=== PATIENT | male | born 1965 | race Caucasian/White ===

== ENCOUNTER 2017-02-05 17:37 | Inpatient (IN) | payer OTHER ==
[2017-02-05] MEDS ORDERED: IOPAMIDOL 370 (76%) 100 ML VIAL IV ONE (17:38)
[2017-02-05 18:10] LABS: ABSOLUTE NEUTROPHIL COUNT 2.9 K/mm3 (1.8-7.7); BASO % 0.5 % (0.2-1.0); EOS % 0.2 % (0.9-2.9); HEMATOCRIT 53.8 % (32.0-52.0); HEMOGLOBIN 17.5 gm/l (14.0-18.0); IMM NEUT% 0.5 % (0-1); LYMPH # 0.7 (1.0-4.8); LYMPH % 16.6 % (15-45); MEAN CELL VOLUME 100.6 fl (80.0-94.0); MEAN CORPUSCULAR HEMOGLOBIN 32.7 pg (27.0-31.0); MEAN CORPUSCULAR HGB CONC 32.5 g/dl (33.0-37.0); MEAN PLATELET VOLUME 9.3 fl (7.4-10.4); MONO # 0.6 (0.0-0.8); MONO % 13.5 % (4-12); NEUT % 68.7 % (43-75); PLATELET COUNT 119 K/mm3 (130-400); RED CELL DISTRIBUTION WIDTH 13.7 % (11.5-14.5)
[2017-02-05 18:16] LABS: ALB/GLOB RATIO 1.1 (>1.0); CALCIUM 8.9 mg/dL (8.6-10.3)
[2017-02-05] MEDS ORDERED: ASPIRIN CHEWTAB 81 MG TABLET ONE (18:44)
--- NOTE | 2017-02-05 19:26 | RAD ---
Name: ROMERO BERMAN Exam: Two-view chest Comparison: 11/29/2009 Clinical history: Shortness breath with chest pain Findings: 2 views of the chest are submitted. Heart is nonenlarged. Mediastinum and hilar structures normal. There is very mild increased density left lung base. Some of this represents prominent bronchovascular markings. A very small amount of atelectasis or infiltrate not excluded. There is no pleural effusion or pneumothorax. Overt failure is not appreciated. Degenerative disease of the spine is noted. Impression: 1. Minimal left basilar increased density some of which is bronchovascular markings. A small amount of atelectasis or infiltrate is not excluded.
--- NOTE | 2017-02-05 20:48 | CT ---
Name: ROMERO BERMAN Exam: CT Angiogram of the chest with contrast Comparison: None Clinical History:Shortness of breath. Elevated d-dimer. Procedure: Helical CT using multidetector technique was applied to the chest during rapid intravenous administration of 80 cc of Isovue-370. Due to the poor opacification of the pulmonary vasculature, the above exam was repeated with intravenous administration of another 80 cc of Isovue-370. A total of 160 cc was intravenously administered for this exam. MIP reconstructions were obtained on the CT scanner. Automated dose reduction technique was used to minimize patient radiation dose. Findings: CT angiogram of the chest (contrast enhanced): This is a low volume exam contributing to prominence of heart. There is no pleural effusion. Aorta is normal caliber. There is a normal 3 great vessel arrangement. Injection is made via the right. There is no suspicious axillary, mediastinal or hilar adenopathy. Large airways are clear. There is no pulmonary embolus. There are couple granulomas. There is no failure, infiltrate, pleural effusion or pneumothorax. Multilevel degenerative seas of the spine is identified. Fatty infiltration liver is present. The spleen is only partially imaged but enlarged. A small amount of stranding is noted at the head of the pancreas. Acute pancreatitis is not excluded on this exam. Adrenal hypertrophy is noted. Impression: 1. No pulmonary embolus 2. Mild stranding of the head of the pancreas. Pancreatitis is not excluded on this exam 3. Splenomegaly. The spleen is partially imaged on this exam 4. Bilateral adrenal hypertrophy 5. Fatty infiltration of liver Note: Findings were transmitted to the emergency department from [employer] at 2014 hours
[2017-02-05] MEDS ORDERED: ALBUTEROL NEB 2.5 MG/3 ML VIAL.NEB NEB ONE (21:05)
[2017-02-05] MEDS ORDERED: CALCIUM CARBONATE 500 MG TAB.CHEW PO PRN (22:25)
[2017-02-05] MEDS ORDERED: BISACODYL 5 MG TABLET.EC PO PRN (22:25)
[2017-02-05] MEDS ORDERED: MAGNESIUM HYDROXIDE 30 ML UDCUP PO PRN (22:25)
[2017-02-05] MEDS ORDERED: BLISTEX LIPSTICK 1 EACH TP PRN (22:25)
[2017-02-05] MEDS ORDERED: BISACODYL 10 MG SUP PR PRN (22:25)
[2017-02-05] MEDS ORDERED: SODIUM CHLORIDE 0.9% 100 ML IV PRN (22:25)
[2017-02-05] MEDS ORDERED: MENTHOL/CETYLPYRD 1 EACH LOZENGE PO PRN (22:25)
[2017-02-05 22:33] VITALS: BMI 39.1
[2017-02-05] MEDS ORDERED: LORAZEPAM 2 MG/ML 1ML SDV IM PRN ×2 (22:41→23:11)
[2017-02-05] MEDS ORDERED: LORAZEPAM 2 MG/ML 1ML SDV IV ONE (22:42)
[2017-02-05] MEDS ORDERED: MULTIVITAMINS 10 ML, FOLIC ACID 2 MG, MAGNESIUM SULFATE 1 G/2 ML 2 G, THIAMINE HCL 100 ... IV ONE ×5 (22:45)
[2017-02-05] MEDS ORDERED: LORAZEPAM 2 MG/ML 1ML SDV ONE (22:56)
[2017-02-05] MEDS ORDERED: SODIUM CHLORIDE 0.9% FLUSH 20 ML ONE (22:56)
[2017-02-05] MEDS ORDERED: SODIUM CHLORIDE 0.9% 1,000 ML ONE (23:00)
[2017-02-05] MEDS ORDERED: MULTIVITAMINS 1,000 ML IV ONE (23:00)
[2017-02-05] MEDS: PANTOPRAZOLE SODIUM 40 MG VIAL IV SCH (23:06)
[2017-02-05] MEDS: CHLORDIAZEPOXIDE HCL 25 MG CAPSULE PO SCH (23:06)
[2017-02-05] MEDS ORDERED: ATENOLOL 50 MG TABLET PO ONE (23:13)
[2017-02-05] MEDS ORDERED: PUMP TUBING ONE (23:41)
[2017-02-06] MEDS: LORAZEPAM 2 MG/ML 1ML SDV IV PRN ×5 (00:01→23:08)
[2017-02-06] MEDS: CHLORDIAZEPOXIDE HCL 25 MG CAPSULE PO SCH ×7 (02:38→23:08)
[2017-02-06 06:45] LABS: CALCIUM 8.7 mg/dL (8.6-10.3)
--- NOTE | 2017-02-06 06:56 | HP ---
Koko Mckenzie [id number] DATE OF ADMISSION: 02/05/2017 CHIEF COMPLAINT: Chest pain. HISTORY OF PRESENT ILLNESS: The patient is a 51-year-old male with a history of heavy daily alcohol use who quit drinking alcohol three days ago. Reports that he has been having symptoms of shortness of breath for the last two weeks, which has acutely worsened in the last 72 hours. In the last 48 hours he has had dull left sided chest pain off and on which feels like a pressure like sensation in the left side of the chest. He has been noticing problems with palpitations and his symptoms began after he quit drinking. He reports that he has been under a lot of emotional distress at home and is currently from his and family living in a hotel. On Thursday he had a black stool which caused him concern and encouraged him to quit drinking cold turkey which he did. He had several more dark stools on Thursday, but none since. His chest pain symptoms seem independent of exertion. He has had trouble sleeping at night and wakes up short of breath at night sometimes. He has had some diffuse discomfort across the epigastric area, but denies any heartburn symptoms. He reports that in the last two weeks he has been drinking up to 36 beers a day. His norm is to drink about 18 beers a day. He denies use of any iron supplements or Pepto-Bismol. He denies any chest pain currently. REVIEW OF SYSTEMS: Negative for any fever or chills. He has had no recent upper respiratory symptoms. He does complain of some dyspnea as I mentioned above. He has had some nocturnal dyspnea. He has chronic lower extremity edema. He has had the chest pain symptoms as mentioned above and he has been feeling palpitations for the last 2 to 3 days. He has chronic lower extremity edema, which is a little worse than usual. He has been feeling nauseated for the last three days. He denies any vomiting. He has had the dark stools as I mentioned. No bright red blood per rectum. No new arthralgias. No headaches, fainting, blackouts, or seizures. No urinary complaints. His review of systems are otherwise negative. PAST MEDICAL HISTORY: Significant for chronic essential hypertension, he has had this for about 20 years. He is morbidly obese. He has a history of obstructive sleep apnea, but has not been using his CPAP device regularly due to difficulty sleeping when using the machine. He was hospitalized in November 2009 for chest pain associated with atrial fibrillation and was successfully cardioverted. He has had no episodes of atrial fibrillation since. He denies any prior cardiac history. No history of coronary artery disease. He has never had a stress test. He has had no other hospitalizations. PAST SURGICAL HISTORY: Negative. ALLERGIES: He has no known drug allergies. CURRENT MEDICATIONS: Consist of a combination drug which includes atenolol, amlodipine, and hydrochlorothiazide, however, he cannot remember the dose of any of the components. He gets his medications through [facility] in [place]. FAMILY HISTORY: Significant for multiple siblings with hypertension and alcoholism. His mother had a brain tumor. SOCIAL HISTORY: He is , but currently from his . He reports that there is a restraining order out preventing him from having contact with his . He has a 17-year-old and a 14-year-old at home. He has a history of longstanding alcoholism, currently drinks 18 beers a day on average, but has been drinking up to 36 beers per day in the last several weeks. He last drank on Thursday. He has gone through alcohol treatment programs in the past, the last time was years ago. He denies tobacco or illicit drug use. His primary care provider is Dr. Travis Shepard. PHYSICAL EXAMINATION: VITAL SIGNS: Body mass index of 39.1, weight of 153.6 kg, temperature 98.4, pulse of 120, blood pressure 149/109, respirations 16, oxygen saturation 96% on room air. GENERAL: This is an anxious obese male in mild distress due to his anxiety. HEENT: Shows moist pink oral mucosa. Pupils are equal, round, and reactive to light. Extraocular movements are intact. NECK: Supple without lymphadenopathy or thyromegaly. LUNGS: Clear to auscultation bilaterally. CARDIOVASCULAR: Reveals a regular tachycardia without a murmur. ABDOMEN: Obese, soft, nontender, nondistended with positive bowel sounds. EXTREMITIES: Show trace lower extremity edema, chronic venous insufficiency is evident based on some hyperpigmented skin changes in his lower extremities and varicose veins present in both lower extremities. Dorsalis pedis pulses are 2+ in both feet. NEUROLOGIC: Nonfocal. He is alert and oriented times three. He is tremulous. DIAGNOSTIC IMAGING STUDIES: Included a chest x-ray as well as a CTA of the chest which shows no evidence of a pulmonary embolism. No infiltrates are seen. No evidence of failure. He has some splenomegaly and some fatty infiltration of the liver. A 12-lead EKG shows sinus tachycardia, no acute ST changes. LABORATORY STUDIES: CBC shows a white count of 4.2, hemoglobin 17.5, hematocrit 54.8, and a platelet count of 119,000. D-dimer is elevated at 0.54. Chemistry profile shows a sodium of 134, potassium 3.9, chloride 94, carbon dioxide 29, BUN 14, creatinine 1.1, glucose 155. Total bilirubin is mildly elevated at 1.3, AST is 63 with an ALT of 76. CK-MB is 5.8. Troponin I is 0.14 and has remained stable at that level on serial monitoring in the emergency department. Lipase is normal at 26. B-type natiuretic peptide is 134. ASSESSMENT: The patient has chest pain with tachycardia and shortness of breath. His symptoms correlate with tremulousness, tachycardia, and heavy alcohol abuse. His symptoms are consistent with acute alcohol withdraw. He is admitted to the medical/surgical unit and placed on telemetry. He will be treated with scheduled Librium as well as, as needed Ativan. He will be given atenolol to treat his blood pressure and his tachycardia. I am going to start him on Protonix due to his recent dark stools and concerns for possible gastritis. We will get hemoccults of the stools and monitor his hemoglobin. We use mechanical measures only for venous thromboembolism prophylaxis due to concerns about active gastritis. Further treatment and recommendations will depend on his hospital course. He will be given a banana bag tonight and will get outreach and education social worker involvement tomorrow to assist with alcohol cessation and treatment options. Further treatment and recommendations will depend on his hospital course. JOB: [id number] CC: Dr. Travis Shepard
[2017-02-06] MEDS: DOCUSATE SODIUM 100 MG CAPSULE PO SCH ×3 (07:53→20:56)
[2017-02-06] MEDS ORDERED: HYDROCHLOROTHIAZIDE 12.5 MG CAP PO SCH (09:00)
[2017-02-06] MEDS ORDERED: LISINOPRIL 20 MG TABLET PO SCH (09:00)
[2017-02-06] MEDS ORDERED: LISINOPRIL PO SCH (09:00)
[2017-02-06] MEDS ORDERED: HYDROCHLOROTHIAZIDE PO SCH (09:00)
[2017-02-06] MEDS ORDERED: ATENOLOL 50 MG TABLET PO SCH ×2 (09:00→21:00)
[2017-02-06] MEDS ORDERED: AMLODIPINE BESYLATE 5 MG TABLET PO SCH ×2 (09:00→12:45)
[2017-02-06] MEDS ORDERED: CHLORDIAZEPOXIDE HCL 25 MG CAPSULE PO SCH (10:45)
--- NOTE | 2017-02-06 12:55 | PDOC43 ---
- Subjective Chief Complaint: Alcohol withdrawal, elevated troponin Patient noted to have fairly marked high blood pressure, some chest pressure, and feeling anxious. These are similar to previous withdrawal episodes. He denies hallucinosis. Just got 2 mg ativan , reports it is helping some to relax. Some abdominal discomfort. Noted having a dark stool previously, today more green. - Objective Vital Signs Temperature 98.2 F 02/06/17 07:15 Pulse Rate 92 02/06/17 07:15 Respiratory Rate 20 02/06/17 07:15 Blood Pressure 159/121 02/06/17 08:00 O2 Saturation by Pulse Oximetry 95 02/06/17 08:00 Oxygen Delivery Method Room Air Oxygen Flow Rate 0 Vital Signs Last 12 Hours Temp Pulse Resp BP Pulse Ox 02/06/17 08:00 159/121 95 02/06/17 07:15 98.2 F 92 20 178/135 95 02/06/17 03:53 98 F 92 18 158/97 96 02/06/17 02:45 16 02/06/17 00:59 98.4 F 108 16 141/91 97 Intake and Output 02/04/17 02/05/17 02/06/17 23:59 23:59 23:59 Intake Total 977 Output Total 500 Balance 477 General: Alert, Cooperative, Mild Distress (appears mildly anxious, but coping well considering his withdrawal.) Lungs: Clear to Auscultation Bilaterally, Normal Air Movement Cardiovascular: Regular Rate and Rhythm Abdomen: Soft, Tenderness (mild diffuse tenderness.), Hypoactive Bowel Sounds, Non-Distended Extremities: Edema (trace, some venous stasis.) Skin: Normal Color Neurological: Normal Speech Psych/Mental Status: Other (appears to be doing ok so far.) Laboratory 02/06/17 05:30 02/06/17 05:30 Troponin I 0.11 H Current Medications: Current meds reviewed in EMR. Active Medications Acetaminophen (Tylenol) 650 mg PO Q6H PRN PRN Reason: Pain or Temperature > 100.5 F Atenolol (Tenormin) 50 mg PO DAILY [facility] Last Admin: 02/06/17 08:31 Dose: 50 mg Benzocaine/Menthol (Cepacol) 1 each PO PRN PRN PRN Reason: Sore Throat Bisacodyl (Dulcolax) 10 mg [place] DAILY PRN PRN Reason: Constipation Bisacodyl (Dulcolax) 5 mg PO DAILY PRN PRN Reason: Constipation Calcium Carbonate/Glycine (Tums) 500 mg PO Q4H PRN PRN Reason: Indigestion Chlordiazepoxide HCl (Librium) 50 mg PO Q4H [facility] Stop: 02/07/17 02:46 Last Admin: 02/06/17 11:05 Dose: 50 mg Chlordiazepoxide HCl (Librium) 25 mg PO QID [facility] Docusate Sodium (Colace) 100 mg PO BID [facility] Last Admin: 02/06/17 09:00 Dose: 100 mg Sodium Chloride (Sodium Chloride 0.9%) 100 mls @ 25 mls/hr IV PRN PRN PRN Reason: Flush Lorazepam (Ativan) 2 mg IM Q5M PRN PRN Reason: SEIZURE Lorazepam (Ativan) 0 mg IV PRN PRN; Protocol PRN Reason: Alcohol Withdrawal Last Admin: 02/06/17 11:29 Dose: 1 mg Magnesium Hydroxide (Milk Of Magnesia) 30 ml PO DAILY PRN PRN Reason: Constipation Miscellaneous (Amlodipine/Valsartan/Hcthiazid [[id number] 5-160-12.5 Mg]) 1 each PO DAILY [facility] Pantoprazole Sodium (Protonix) 40 mg IV Q24H [facility] Last Admin: 02/05/17 23:06 Dose: 40 mg Petrolatum/Paraffin/Mineral Oil (Blistex) 1 each TP PRN PRN PRN Reason: Dry and/or chapped lips Sodium Chloride (Normal Saline 10ml Flush) 10 - 50 ml IV PRN PRN PRN Reason: IV Flush Last Admin: 02/06/17 07:49 Dose: 10 ml Sodium Chloride (Normal Saline 10ml Flush) 10 ml IV Q8HR [facility] Last Admin: 02/06/17 10:42 Dose: Not Given - Problems: Assessment/Plan (1) Alcohol withdrawal Qualifiers: Complication of substance-induced condition: with unspecified complication Qualifier Code: (F10.239) Alcohol dependence with withdrawal, unspecified Status: AcuteAssessment/Plan: Presence of HTN, tachycardia despite medication (atenolol) suggesting some degree of DTs. Plan further increase in librium,continue ativan and anticipate further increase in atenolol as well for BP . Had banana bag. Pt reports desire to quit drinking . Appreciate SW input. (2) Elevated troponin Status: AcuteAssessment/Plan: Stable, sl declining troponin: Laboratory Tests 02/05/17 02/05/17 02/06/17 17:42 20:25 05:30 D-Dimer 0.54 H Troponin I 0.14 H 0.11 H Lipase 26 TSH 0.70 CK -MB not elevated. Suspect NOT ACS nor NSTEMI, but rather demand from marked HTN due to alcohol withdrawal/DTs. Continue ASA, betablocker (3) Hypertension Qualifiers: Hypertension type: other secondary hypertension Qualifier Code: (I15.8 ) Other secondary hypertension Status: AcuteAssessment/Plan: Marked HTN associated with alcohol withdrawal. Plan continue atenolol, anticipate increase. Continue/Revise tx of withdrawal. Monitor BP. (4) Stool color black Status: AcuteAssessment/Plan: Hemoccult ordered. CBC monitoring VTE Prophylaxis: Ambulatory pt, concern for marked HTN. Disposition: Appreciate SW input.
[2017-02-06 13:00] LABS: A1C-GLYCOHEMOGLOBIN 1.4 g/dl; HEMOGLOBIN-GLYCO 15.4 g/dl
[2017-02-06] MEDS: PANTOPRAZOLE SODIUM 40 MG VIAL IV SCH (23:08)
[2017-02-07] MEDS: CHLORDIAZEPOXIDE HCL 25 MG CAPSULE PO SCH ×6 (02:45→20:52)
[2017-02-07] MEDS: LORAZEPAM 2 MG/ML 1ML SDV IV PRN ×5 (02:45→20:54)
[2017-02-07 06:25] LABS: ABSOLUTE NEUTROPHIL COUNT 3.1 K/mm3 (1.8-7.7); BASO % 0.7 % (0.2-1.0); EOS # 0.1 (0.0-0.5); EOS % 1.4 % (0.9-2.9); HEMATOCRIT 51.9 % (32.0-52.0); HEMOGLOBIN 16.8 gm/l (14.0-18.0); IMM NEUT% 0.5 % (0-1); LYMPH # 0.7 (1.0-4.8); LYMPH % 16.4 % (15-45); MEAN CELL VOLUME 101.4 fl (80.0-94.0); MEAN CORPUSCULAR HEMOGLOBIN 32.8 pg (27.0-31.0); MEAN CORPUSCULAR HGB CONC 32.4 g/dl (33.0-37.0); MEAN PLATELET VOLUME 9.5 fl (7.4-10.4); MONO # 0.4 (0.0-0.8); MONO % 8.3 % (4-12); NEUT % 72.7 % (43-75); PLATELET COUNT 96 K/mm3 (130-400); RED CELL DISTRIBUTION WIDTH 13.8 % (11.5-14.5)
[2017-02-07 06:40] LABS: INR 1.11; PROTHROMBIN TIME 11.8 SECONDS (9.3-11.4)
[2017-02-07 06:49] LABS: ALB/GLOB RATIO 1.1 (>1.0); ALBUMIN 3.5 gm/dL (3.5-5.7); CALCIUM 8.7 mg/dL (8.6-10.3)
[2017-02-07] MEDS ORDERED: SODIUM CHLORIDE 0.9% 1,000 ML IV SCH ×2 (08:45→11:15)
--- NOTE | 2017-02-07 08:46 | PDOC43 ---
- Subjective Chief Complaint: Alcohol withdrawal, elevated troponin Patient reports some chest pressure, anxiety. Notes some tremor. BP up, due to his BP meds this am. Getting Librium and ativan. Pt reports sleeping maybe 2 hours, but may not be accurate due to situation. No seizure activity. - Objective Vital Signs Temperature 97.9 F 02/07/17 07:51 Pulse Rate 95 02/07/17 07:51 Respiratory Rate 20 02/07/17 07:51 Blood Pressure 172/116 02/07/17 07:51 O2 Saturation by Pulse Oximetry 93 02/07/17 07:51 Oxygen Delivery Method Room Air Oxygen Flow Rate 0 Vital Signs Last 12 Hours Temp Pulse Resp BP Pulse Ox 02/07/17 07:51 97.9 F 95 20 172/116 93 02/07/17 04:00 97.8 F 89 20 161/112 97 02/07/17 02:00 20 02/07/17 00:00 98.4 F 85 20 158/104 96 Intake and Output 02/05/17 02/06/17 02/07/17 23:59 23:59 23:59 Intake Total 5 1850 Output Total 800 Balance 1255 1850 General: Other (awake, not appearing agitated, but a little sleepy/confused. No significant tremor noted.) HEENT: Other (eyes sl injected/Bleary appearing bilat.) Lungs: Other (slight wheeze R posterior base.) Cardiovascular: Regular Rate and Rhythm Abdomen: Soft, Other (Full abd, not tender. No R/G. BS quiet but +.), No Bruits Extremities: Edema (mild edema bilat, some venous stasis bilat.), No Tenderness Neurological: Other (appears sl medicated. Good handshake) Psych/Mental Status: Other (sl sleepy, mild confusion,) Laboratory 02/07/17 05:30 02/07/17 05:30 02/07/17 02/06/17 05:30 05:30 MCV 101.4 H MCH 32.8 H MCHC 32.4 L PT 11.8 H Hemoglobin A1c 10.5 H Total Bilirubin 1.1 H AST 93 H ALT 111 H Troponin I 0.07 H Current Medications: Current meds reviewed in EMR. Active Medications Acetaminophen (Tylenol) 650 mg PO Q6H PRN PRN Reason: Pain or Temperature > 100.5 F Amlodipine Besylate (Norvasc) 5 mg PO QAM [facility] Atenolol (Tenormin) 50 mg PO BID [facility] Last Admin: 02/06/17 20:56 Dose: 50 mg Benzocaine/Menthol (Cepacol) 1 each PO PRN PRN PRN Reason: Sore Throat Bisacodyl (Dulcolax) 10 mg [place] DAILY PRN PRN Reason: Constipation Bisacodyl (Dulcolax) 5 mg PO DAILY PRN PRN Reason: Constipation Calcium Carbonate/Glycine (Tums) 500 mg PO Q4H PRN PRN Reason: Indigestion Chlordiazepoxide HCl (Librium) 50 mg PO Q3H [facility] Stop: 02/07/17 08:31 Last Admin: 02/07/17 07:47 Dose: 50 mg Docusate Sodium (Colace) 100 mg PO BID [facility] Last Admin: 02/06/17 20:56 Dose: 100 mg Hydrochlorothiazide (Hydrochlorothiazide) 12.5 mg PO DAILY [facility] Sodium Chloride (Sodium Chloride 0.9%) 100 mls @ 25 mls/hr IV PRN PRN PRN Reason: Flush Lorazepam (Ativan) 2 mg IM Q5M PRN PRN Reason: SEIZURE Lorazepam (Ativan) 0 mg IV PRN PRN; Protocol PRN Reason: Alcohol Withdrawal Last Admin: 02/07/17 07:47 Dose: 0.5 mg Magnesium Hydroxide (Milk Of Magnesia) 30 ml PO DAILY PRN PRN Reason: Constipation Pantoprazole Sodium (Protonix) 40 mg IV Q24H [facility] Last Admin: 02/06/17 23:08 Dose: 40 mg Petrolatum/Paraffin/Mineral Oil (Blistex) 1 each TP PRN PRN PRN Reason: Dry and/or chapped lips Sodium Chloride (Normal Saline 10ml Flush) 10 - 50 ml IV PRN PRN PRN Reason: IV Flush Last Admin: 02/07/17 07:48 Dose: 10 ml Sodium Chloride (Normal Saline 10ml Flush) 10 ml IV Q8HR [facility] Last Admin: 02/07/17 01:15 Dose: 10 ml Valsartan (Diovan) 160 mg PO DAILY [facility] - Problems: Assessment/Plan (1) Alcohol withdrawal Qualifiers: Complication of substance-induced condition: with unspecified complication Qualifier Code: (F10.239) Alcohol dependence with withdrawal, unspecified Status: AcuteAssessment/Plan: Presence of HTN, tachycardia despite medication (atenolol) suggesting DTs. On Librium, ativan, MVI. Had banana bag. Pt reports desire to quit drinking . Appreciate SW input. (2) Elevated troponin Status: AcuteAssessment/Plan: Stable, improving troponin: CK -MB not elevated. Suspect NOT ACS nor NSTEMI, but rather demand from marked HTN due to alcohol withdrawal/DTs. Continue ASA, betablocker. CTA did not suggest dissection or other acute cardiovascular complication. (3) Hypertension Qualifiers: Hypertension type: other secondary hypertension Qualifier Code: (I15.8 ) Other secondary hypertension Status: AcuteAssessment/Plan: Marked HTN associated with alcohol withdrawal. on Atenolol 50 bid, valsartan 320, HCTZ 12.5, amlodipine 10 Continue tx of withdrawal. Monitor BP, consider further revision of atenolol, and whether to add other med, such as clonidine, Imdur (4) Stool color black Status: AcuteAssessment/Plan: Pt reported this. Hemoccult ordered. CBC monitoring - Hb not low so far Continue IV Protonix (5) Diabetes mellitus type II, uncontrolled Qualifiers: Diabetes mellitus complication status: without complication Diabetes mellitus rat exterminator insulin use: without rat exterminator use Qualifier Code: ( E11.65) Type 2 diabetes mellitus with hyperglycemia Status: Suspected Assessment/Plan: Elevated glucose, A1c of 10.5 would suggest uncontrolled DMII Plan start Lantus, CBGs, SS insulin. Dietitian later when more awake. VTE Prophylaxis: Ambulatory pt, concern for marked HTN. Disposition: Appreciate SW input.
[2017-02-07] MEDS ORDERED: AMLODIPINE BESYLATE 5 MG TABLET PO SCH (09:00)
[2017-02-07] MEDS ORDERED: CHLORDIAZEPOXIDE HCL 25 MG CAPSULE PO SCH (09:00)
[2017-02-07] MEDS ORDERED: ISOSORBIDE MONONITRATE 30 MG TAB.SR PO SCH (09:00)
[2017-02-07] MEDS ORDERED: VALSARTAN 80 MG TABLET PO SCH (09:00)
[2017-02-07] MEDS: INSULIN GLARGINE (DOSE) 100 UNITS/ML UNIT SUB-Q SCH (09:44)
[2017-02-07] MEDS: AMLODIPINE BESYLATE 5 MG TABLET PO SCH (09:45)
[2017-02-07] MEDS: VALSARTAN 80 MG TABLET PO SCH (09:45)
[2017-02-07] MEDS: HYDROCHLOROTHIAZIDE 12.5 MG CAP PO SCH (09:45)
[2017-02-07] MEDS: ATENOLOL 50 MG TABLET PO SCH ×2 (09:45→20:53)
[2017-02-07] MEDS: DOCUSATE SODIUM 100 MG CAPSULE PO SCH ×2 (09:46→20:53)
--- NOTE | 2017-02-07 09:56 | RAD ---
Exam: Portable chest COMPARISON: 02/05/2017 INDICATION: Chest pressure, alcohol withdrawal. Findings: A semierect AP portable view of the chest at 0857 hours demonstrates mild cardiomegaly and borderline pulmonary vascular congestion although there is no bud pulmonary edema, focal airspace disease or pleural effusion. Bones of the chest wall within normal limits. IMPRESSION: No acute pulmonary process.
[2017-02-07] MEDS ORDERED: PUMP TUBING ONE (10:37)
[2017-02-07] MEDS ORDERED: IV START KIT ONE (10:37)
[2017-02-07] MEDS ORDERED: FUROSEMIDE 20 MG/2 ML VIAL IV ONE (15:26)
[2017-02-07] MEDS: PANTOPRAZOLE SODIUM 40 MG VIAL IV SCH (22:42)
[2017-02-08 06:28] LABS: ALB/GLOB RATIO 1.1 (>1.0); ALBUMIN 3.5 gm/dL (3.5-5.7); CALCIUM 8.7 mg/dL (8.6-10.3)
[2017-02-08 06:31] LABS: TROPONIN I 0.05 ng/ml (0.0-0.06)
[2017-02-08 06:34] LABS: CKMB ISOENZYME 1.6 ng/ml (0.6-6.3)
--- NOTE | 2017-02-08 07:38 | PDOC43 ---
- Subjective Chief Complaint: Alcohol withdrawal, elevated troponin Subjective: Reports Adequate Oral Intake, Reports Other (still receiving PRN ativan. Complains of >2 week H/O sinus congestion with purulent nasal discharge and right sided siuns pressure), Denies Chest Pain - Objective Vital Signs Temperature 98.2 F 02/08/17 03:20 Pulse Rate 82 02/08/17 03:20 Respiratory Rate 22 02/08/17 03:20 Blood Pressure 126/84 02/08/17 03:20 O2 Saturation by Pulse Oximetry 96 02/08/17 03:20 Oxygen Delivery Method Nasal Cannula Oxygen Flow Rate 4 Intake and Output 02/07/17 02/08/17 02/09/17 06:59 06:59 06:59 Intake Total 2928 3660 Output Total 300 1125 Balance 2628 2535 General: Alert, Oriented x3, Mild Distress HEENT: Other (right nasal nare obstructed with bilateral purulent discharge and mild right maxillary pain) Lungs: Diminished at Bases Cardiovascular: Regular Rate and Rhythm Abdomen: Soft, Normal Bowel Sounds, Non-Distended, No Tenderness Extremities: No Edema Skin: Warm, Dry, Intact Laboratory 02/07/17 05:30 02/08/17 05:30 02/08/17 02/07/17 02/07/17 05:30 22:13 19:16 POC Capillary Glucose 162 H 142 H Total Bilirubin 1.5 H AST 127 H ALT 132 H Amylase 21 L 02/07/17 02/07/17 13:19 09:42 POC Capillary Glucose 182 H 186 H Total Bilirubin AST ALT Amylase Current Medications: Current meds reviewed in EMR. - Problems: Assessment/Plan (1) Alcohol withdrawal Qualifiers: Complication of substance-induced condition: with unspecified complication Qualifier Code: (F10.239) Alcohol dependence with withdrawal, unspecified Status: AcuteAssessment/Plan: Presence of HTN, tremor, and tachycardia despite medication (atenolol) suggesting DTs. On Librium, ativan, MVI. Had banana bag. Pt reports desire to quit drinking . Appreciate SW input. Would like to arrange for outpatient treatment in am (2) Hypertension Qualifiers: Hypertension type: other secondary hypertension Qualifier Code: (I15.8 ) Other secondary hypertension Status: AcuteAssessment/Plan: Marked HTN associated with alcohol withdrawal. on Atenolol 100 bid, valsartan 320, HCTZ 12.5, amlodipine 10 Continue tx of withdrawal. - will stop Imdur to sig. drop in BP after increasing other med doses (3) Stool color black Status: AcuteAssessment/Plan: Pt reported this. Hemoccult ordered but not performed. CBC monitoring - Hb stable so far Switch to PO Protonix (4) Elevated troponin Status: AcuteAssessment/Plan: Stable, improving troponin: CK -MB not elevated. Suspect NOT ACS nor NSTEMI, but rather demand/strain from marked HTN due to alcohol withdrawal/DTs. Continue ASA, betablocker. CTA did not suggest dissection or other acute cardiovascular complication. Will perform Lexiscan in am. (5) Diabetes mellitus type II, uncontrolled Qualifiers: Diabetes mellitus complication status: without complication Diabetes mellitus [facility] insulin use: without technician terminal and repeater use Qualifier Code: ( E11.65) Type 2 diabetes mellitus with hyperglycemia Status: Suspected Assessment/Plan: Elevated glucose, A1c of 10.5 would suggest uncontrolled DMII On Lantus, CBGs, SS insulin. Dietitian in am. Start Amaryl today and anticipate metformin on discharge. Will likely stop Lantus on discharge. (6) Sinusitis, acute maxillary Qualifiers: Recurrence: non-recurrent Qualifier Code: (J01.00) Acute maxillary sinusitis, unspecified Status: AcuteAssessment/Plan: start Doxycycline VTE Prophylaxis: [facility] measures Disposition: Appreciate SW input. Anticipate discharge in am.
[2017-02-08] MEDS: LORAZEPAM 2 MG/ML 1ML SDV IV PRN ×3 (08:49→22:52)
[2017-02-08] MEDS: INSULIN GLARGINE (DOSE) 100 UNITS/ML UNIT SUB-Q SCH (08:49)
[2017-02-08] MEDS: HYDROCHLOROTHIAZIDE 12.5 MG CAP PO SCH (08:51)
[2017-02-08] MEDS: DOXYCYCLINE HYCLATE 100 MG TABLET PO SCH ×2 (08:51→20:50)
[2017-02-08] MEDS: AMLODIPINE BESYLATE 5 MG TABLET PO SCH (08:52)
[2017-02-08] MEDS: GLIMEPIRIDE 4 MG TABLET PO SCH (08:52)
[2017-02-08] MEDS: VALSARTAN 80 MG TABLET PO SCH (08:52)
[2017-02-08] MEDS: DOCUSATE SODIUM 100 MG CAPSULE PO SCH ×2 (08:52→20:51)
[2017-02-08] MEDS: CHLORDIAZEPOXIDE HCL 25 MG CAPSULE PO SCH ×4 (08:53→20:50)
[2017-02-08] MEDS: ATENOLOL 50 MG TABLET PO SCH ×2 (08:53→20:51)
[2017-02-08] MEDS: PANTOPRAZOLE SODIUM 40 MG VIAL IV SCH (22:45)
[2017-02-09] MEDS ORDERED: LORAZEPAM 2 MG/ML 1ML SDV IV PRN (01:11)
[2017-02-09] MEDS ORDERED: SODIUM CHLORIDE 0.9% FLUSH 10 ML ONE ×2 (04:00→11:36)
[2017-02-09] MEDS ORDERED: IV START KIT ONE ×3 (04:01→11:43)
[2017-02-09] MEDS: ALBUTEROL/IPRATROPIUM 2.5/0.5 MG 3 ML/EACH DOSE NEB SCH ×4 (07:29→19:50)
[2017-02-09] MEDS: INSULIN GLARGINE (DOSE) 100 UNITS/ML UNIT SUB-Q SCH (08:32)
[2017-02-09] MEDS: VALSARTAN 80 MG TABLET PO SCH (08:34)
[2017-02-09] MEDS: ATENOLOL 50 MG TABLET PO SCH ×2 (08:35→20:45)
[2017-02-09] MEDS: AMLODIPINE BESYLATE 5 MG TABLET PO SCH (08:36)
[2017-02-09] MEDS: GLIMEPIRIDE 4 MG TABLET PO SCH (08:36)
[2017-02-09] MEDS: DOCUSATE SODIUM 100 MG CAPSULE PO SCH ×2 (08:39→20:44)
[2017-02-09] MEDS: DOXYCYCLINE HYCLATE 100 MG TABLET PO SCH (08:39)
[2017-02-09] MEDS: CHLORDIAZEPOXIDE HCL 25 MG CAPSULE PO SCH ×4 (08:39→20:45)
[2017-02-09] MEDS: HYDROCHLOROTHIAZIDE 12.5 MG CAP PO SCH (08:39)
--- NOTE | 2017-02-09 08:45 | RAD ---
CHEST - 2 VIEWS COMPARISON: Portable chest x-ray, 02/07/2017 HISTORY: Alcohol withdrawal, hypoxia. FINDINGS: Views: Frontal and lateral chest Lungs: Marked change in both lungs, with diffuse infiltrates, greatest in the lung bases. Heart and vessels: The vessels are not enlarged. No change in cardiomegaly. Trachea and bronchi: Normal Mediastinum and zeenat: Normal Costophrenic sulci: Normal Chest wall and bones: No acute finding. Degenerative changes in the spine. Upper abdomen: Normal. IMPRESSION: Bilateral pulmonary infiltrates have developed compared to 02/07/2017. Differential diagnosis includes pneumonia, possibly from aspiration, and noncardiogenic pulmonary edema.
[2017-02-09] MEDS ORDERED: FUROSEMIDE 20 MG/2 ML VIAL IV ONE ×2 (08:57→11:29)
[2017-02-09 10:10] LABS: ABSOLUTE NEUTROPHIL COUNT 4.6 K/mm3 (1.8-7.7); BASO % 0.5 % (0.2-1.0); EOS # 0.1 (0.0-0.5); EOS % 0.8 % (0.9-2.9); HEMATOCRIT 51.9 % (32.0-52.0); HEMOGLOBIN 16.7 gm/l (14.0-18.0); IMM NEUT% 0.5 % (0-1); LYMPH # 0.7 (1.0-4.8); LYMPH % 11.4 % (15-45); MEAN CORPUSCULAR HEMOGLOBIN 32.5 pg (27.0-31.0); MEAN CORPUSCULAR HGB CONC 32.2 g/dl (33.0-37.0); MEAN PLATELET VOLUME 9.2 fl (7.4-10.4); MONO # 0.7 (0.0-0.8); MONO % 11.2 % (4-12); NEUT % 75.6 % (43-75); PLATELET COUNT 105 K/mm3 (130-400); RED CELL DISTRIBUTION WIDTH 13.7 % (11.5-14.5)
[2017-02-09 11:50] LABS: CALCIUM 9.2 mg/dL (8.6-10.3)
[2017-02-09] MEDS ORDERED: PUMP TUBING ONE (12:24)
[2017-02-09] MEDS: ERTAPENEM SODIUM 1 G in NS 0.9% (MINI-BAG PLUS) 50 ML IV SCH (12:32)
--- NOTE | 2017-02-09 14:12 | PDOC43 ---
- Subjective Chief Complaint: Alcohol withdrawal, elevated troponin Subjective: Reports Tolerating Diet Well, Reports Shortness of Breath ( worsening over past 8 hours), Denies Chest Pain, Denies Fever - Objective Vital Signs Temperature 98.8 F 02/09/17 11:28 Pulse Rate 85 02/09/17 12:39 Respiratory Rate 38 02/09/17 13:00 Blood Pressure 158/94 02/09/17 12:39 O2 Saturation by Pulse Oximetry 92 02/09/17 12:39 Oxygen Delivery Method Non-Rebreather Oxygen Flow Rate 15 Intake and Output 02/08/17 02/09/17 02/10/17 06:59 06:59 06:59 Intake Total 3660 1400 150 Output Total 1125 3600 Balance 2535 1400 -3450 General: Alert, Oriented x3, Moderate Distress HEENT: Mucous membr. moist/pink Lungs: Diminished at Bases, Other (some bibasilar ronchi) Cardiovascular: Regular Rate and Rhythm Abdomen: Soft, Normal Bowel Sounds, Non-Distended, No Tenderness Extremities: Edema (trace) Skin: Warm, Dry, Intact Laboratory 02/09/17 10:00 02/09/17 10:00 02/09/17 02/09/17 02/09/17 12:15 11:01 10:00 MCV 101.0 H MCH 32.5 H MCHC 32.2 L POC Capillary Glucose 124 H 114 H B-Natriuretic Peptide 315 H 02/09/17 02/08/17 02/08/17 08:32 20:44 16:11 MCV MCH MCHC POC Capillary Glucose 122 H 161 H 117 H B-Natriuretic Peptide Current Medications: Current meds reviewed in EMR. - Problems: Assessment/Plan (1) Alcohol withdrawal Qualifiers: Complication of substance-induced condition: with unspecified complication Qualifier Code: (F10.239) Alcohol dependence with withdrawal, unspecified Status: AcuteAssessment/Plan: Presence of HTN, tremor, and tachycardia despite medication (atenolol) suggesting DTs. On Librium, ativan, MVI. Had banana bag. Pt reports desire to quit drinking . Appreciate SW input. Would like to arrange for outpatient treatment on discharge (2) Hypertension Qualifiers: Hypertension type: other secondary hypertension Qualifier Code: (I15.8 ) Other secondary hypertension Status: AcuteAssessment/Plan: Marked HTN associated with alcohol withdrawal. on Atenolol 100 bid, valsartan 320, HCTZ 12.5, amlodipine 10 Continue tx of withdrawal. 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 Hemoccult negative. CBC monitoring - Hb stable so far Switch to PO Protonix (4) Elevated troponin Status: AcuteAssessment/Plan: Stable, improving troponin: CK -MB not elevated. Suspect NOT ACS nor NSTEMI, but rather demand/strain from marked HTN due to alcohol withdrawal/DTs. Continue ASA, betablocker. CTA did not suggest dissection or other acute cardiovascular complication. Will perform Lexiscan prior to discharge. (5) Diabetes mellitus type II, uncontrolled Qualifiers: Diabetes mellitus complication status: without complication Diabetes mellitus technician terminal and repeater insulin use: without technician terminal and repeater use Qualifier Code: ( E11.65) Type 2 diabetes mellitus with hyperglycemia Status: Suspected Assessment/Plan: Elevated glucose, A1c of 10.5 would suggest uncontrolled DMII On Lantus, CBGs, SS insulin. Dietitian in am. Started Amaryl and anticipate metformin on discharge. Will likely stop Lantus on discharge. (6) Sinusitis, acute maxillary Qualifiers: Recurrence: non-recurrent Qualifier Code: (J01.00) Acute maxillary sinusitis, unspecified Status: AcuteAssessment/Plan: started Doxycycline on 02/08 (7) Tachypnea Status: AcuteAssessment/Plan: with acute hypoxic resp failure, suspect due to acute diastolic CHF versus aspiration pneumonia-transferred to [facility] and treated with Lasix, Abx changed to Ertapenem VTE Prophylaxis: [facility] measures on admit due to concerns for possible GI bleeding, starting Lovenox on 02/09 Disposition: Appreciate SW input. Anticipate discharge in 1-2 days. Additional Comments: Transferred to [facility]
[2017-02-09] MEDS: POTASSIUM CHLORIDE 20 MEQ TAB.PRT.SR PO SCH ×4 (14:30→20:45)
[2017-02-09] MEDS: ENOXAPARIN SODIUM 40 MG/0.4 ML SYRINGE SUB-Q SCH (14:30)
[2017-02-09] MEDS: PANTOPRAZOLE SODIUM 40 MG VIAL IV SCH (22:54)
[2017-02-10 05:23] LABS: ABSOLUTE NEUTROPHIL COUNT 2.5 K/mm3 (1.8-7.7); EOS # 0.1 (0.0-0.5); EOS % 1.8 % (0.9-2.9); HEMATOCRIT 51.1 % (32.0-52.0); HEMOGLOBIN 16.3 gm/l (14.0-18.0); IMM NEUT% 0.5 % (0-1); LYMPH # 0.7 (1.0-4.8); LYMPH % 17.2 % (15-45); MEAN CELL VOLUME 103.9 fl (80.0-94.0); MEAN CORPUSCULAR HEMOGLOBIN 33.1 pg (27.0-31.0); MEAN CORPUSCULAR HGB CONC 31.9 g/dl (33.0-37.0); MEAN PLATELET VOLUME 9.8 fl (7.4-10.4); MONO # 0.6 (0.0-0.8); MONO % 14.6 % (4-12); NEUT % 64.9 % (43-75); PLATELET COUNT 116 K/mm3 (130-400); RED CELL DISTRIBUTION WIDTH 14.1 % (11.5-14.5)
[2017-02-10 05:47] LABS: CALCIUM 8.9 mg/dL (8.6-10.3)
[2017-02-10] MEDS: ALBUTEROL/IPRATROPIUM 2.5/0.5 MG 3 ML/EACH DOSE NEB SCH ×4 (07:55→22:29)
--- NOTE | 2017-02-10 08:58 | PDOC43 ---
- Subjective Chief Complaint: Alcohol withdrawal, elevated troponin Subjective: Reports Shortness of Breath (persists), Reports Other (seems sedated ), Denies Chest Pain - Objective Vital Signs Temperature 98.6 F 02/09/17 22:50 Pulse Rate 66 02/10/17 05:46 Respiratory Rate 30 02/10/17 05:46 Blood Pressure 118/65 02/10/17 05:46 O2 Saturation by Pulse Oximetry 91 02/10/17 08:00 Oxygen Delivery Method Nasal Cannula Oxygen Flow Rate 4 Intake and Output 02/09/17 02/10/17 02/11/17 06:59 06:59 06:59 Intake Total 1400 1570 Output Total 4975 Balance 1400 -3405 General: Other (somnolent) HEENT: Mucous membr. moist/pink Lungs: Diminished at Bases Cardiovascular: Regular Rate and Rhythm Abdomen: Soft, Normal Bowel Sounds, Mild Distention, No Tenderness Extremities: No Edema Skin: Warm, Dry, Intact Laboratory 02/10/17 05:13 02/10/17 05:13 02/10/17 02/09/17 02/09/17 05:13 21:10 12:15 MCV 103.9 H MCH 33.1 H MCHC 31.9 L POC Capillary Glucose 182 H 124 H B-Natriuretic Peptide 02/09/17 02/09/17 02/09/17 11:01 10:00 08:32 MCV 101.0 H MCH 32.5 H MCHC 32.2 L POC Capillary Glucose 114 H 122 H B-Natriuretic Peptide 315 H Current Medications: Current meds reviewed in EMR. - Problems: Assessment/Plan (1) Alcohol withdrawal Qualifiers: Complication of substance-induced condition: with unspecified complication Qualifier Code: (F10.239) Alcohol dependence with withdrawal, unspecified Status: AcuteAssessment/Plan: Presence of HTN, tremor, and tachycardia despite medication (atenolol) suggesting DTs. On Librium, ativan, MVI. Had banana bag. Pt reports desire to quit drinking . Appreciate SW input. Would like to arrange for outpatient treatment on discharge - stopping all sedatives this am (2) Hypertension Qualifiers: Hypertension type: other secondary hypertension Qualifier Code: (I15.8 ) Other secondary hypertension Status: AcuteAssessment/Plan: Marked HTN associated with alcohol withdrawal. on Atenolol 100 bid, valsartan 320, HCTZ 12.5, amlodipine 10 Continue tx of withdrawal. - BP a bit low this am hold Norvasc (3) Stool color black Status: AcuteAssessment/Plan: Pt reported this. Hemoccult negative. CBC monitoring - Hb stable so far PO Protonix (4) Elevated troponin Status: AcuteAssessment/Plan: Stable, improving troponin: CK -MB not elevated. Suspect NOT ACS nor NSTEMI, but rather demand/strain from marked HTN due to alcohol withdrawal/DTs. Continue ASA, betablocker. CTA did not suggest dissection or other acute cardiovascular complication. Will perform Lexiscan prior to discharge. (5) Diabetes mellitus type II, uncontrolled Qualifiers: Diabetes mellitus complication status: without complication Diabetes mellitus custodial insulin use: without custodial use Qualifier Code: ( E11.65) Type 2 diabetes mellitus with hyperglycemia Status: Suspected Assessment/Plan: Elevated glucose, A1c of 10.5 would suggest uncontrolled DMII On Lantus, Amaryl, CBGs, SS insulin. Dietitian requested. - Cont. Amaryl and start metformin today, stopping Lantus (6) Sinusitis, acute maxillary Qualifiers: Recurrence: non-recurrent Qualifier Code: (J01.00) Acute maxillary sinusitis, unspecified Status: AcuteAssessment/Plan: started Doxycycline on 02/08, but stopped on 02/09 when Ertapenem started (7) Tachypnea Status: AcuteAssessment/Plan: with acute hypoxic resp failure, suspect due to acute diastolic CHF versus aspiration pneumonia-transferred to [facility] and treated with Lasix, Abx changed to Ertapenem on 02/09 (8) Respiratory failure Qualifiers: Chronicity: acute on chronic Respiratory failure complication: hypoxia and hypercapnia Qualifier Code: (J96.21) Acute and chronic respiratory failure with hypoxia Status: AcuteAssessment/Plan: associated with obst. sleep apnea now compounded by aspiration pneumonia versus acute diastolic CHF- Cont. oxygen, unable to use Bipap because of wilks (9) Obstructive sleep apnea of adult Status: ChronicAssessment/Plan: working on getting home unit VTE Prophylaxis: [facility] measures on admit due to concerns for possible GI bleeding, started Lovenox on 02/09 Disposition: Appreciate SW input. Anticipate discharge in 1-2 days. Additional Comments: Transferred to [facility] on 02/09
[2017-02-10] MEDS: AMLODIPINE BESYLATE 5 MG TABLET PO SCH (10:05)
[2017-02-10] MEDS: GLIMEPIRIDE 4 MG TABLET PO SCH (11:09)
[2017-02-10] MEDS: METFORMIN HCL 850 MG TABLET PO SCH ×2 (11:10→17:30)
[2017-02-10] MEDS: DOCUSATE SODIUM 100 MG CAPSULE PO SCH ×2 (11:10→20:48)
[2017-02-10] MEDS: ERTAPENEM SODIUM 1 G in NS 0.9% (MINI-BAG PLUS) 50 ML IV SCH (11:47)
[2017-02-10] MEDS: ATENOLOL 50 MG TABLET PO SCH ×2 (11:57→20:48)
[2017-02-10] MEDS: VALSARTAN 80 MG TABLET PO SCH (11:58)
[2017-02-10] MEDS: HYDROCHLOROTHIAZIDE 12.5 MG CAP PO SCH (11:58)
[2017-02-10] MEDS: INSULIN ASPART (DOSE) 100 UNITS/1 ML SUB-Q PRN ×3 (14:10→22:28)
[2017-02-10] MEDS: ENOXAPARIN SODIUM 40 MG/0.4 ML SYRINGE SUB-Q SCH (14:10)
[2017-02-10] MEDS: ACETAMINOPHEN 325 MG TABLET PO PRN (17:41)
[2017-02-10] MEDS ORDERED: WATER FOR IRRIG,STERILE 1,000 ML BOT ONE (20:34)
[2017-02-10] MEDS: PANTOPRAZOLE SODIUM 40 MG VIAL IV SCH (22:29)
[2017-02-11] MEDS: AMLODIPINE BESYLATE 5 MG TABLET PO SCH (08:25)
[2017-02-11] MEDS: INSULIN ASPART (DOSE) 100 UNITS/1 ML SUB-Q PRN ×4 (08:25→21:34)
[2017-02-11] MEDS: DOCUSATE SODIUM 100 MG CAPSULE PO SCH ×2 (08:25→21:34)
[2017-02-11] MEDS: HYDROCHLOROTHIAZIDE 12.5 MG CAP PO SCH (08:26)
[2017-02-11] MEDS: METFORMIN HCL 850 MG TABLET PO SCH ×2 (08:26→18:30)
[2017-02-11] MEDS: ATENOLOL 50 MG TABLET PO SCH ×2 (08:26→21:34)
[2017-02-11] MEDS: GLIMEPIRIDE 4 MG TABLET PO SCH (08:26)
[2017-02-11] MEDS: VALSARTAN 80 MG TABLET PO SCH (08:27)
[2017-02-11] MEDS: ALBUTEROL/IPRATROPIUM 2.5/0.5 MG 3 ML/EACH DOSE NEB SCH ×4 (08:30→21:18)
[2017-02-11] MEDS ORDERED: TRAZODONE HCL 50 MG TABLET PO PRN (11:04)
--- NOTE | 2017-02-11 11:04 | PDOC43 ---
- Subjective Chief Complaint: Alcohol withdrawal, elevated troponin Patient asleep in chair. Does not want to be bothered. His only complaint is that he wants a sleeping pill, says he has been awake all night. Takes something that starts with an "A" at home. Subjective: Reports Pain Tolerable, Reports Tolerating Diet Well, Denies Shortness of Breath, Denies Cough, Denies Chest Pain, Denies Abdominal Pain - Objective Vital Signs Temperature 98.7 F 02/11/17 08:00 Pulse Rate 87 02/11/17 08:30 Respiratory Rate 28 02/11/17 08:37 Blood Pressure 137/82 02/11/17 08:00 O2 Saturation by Pulse Oximetry 91 02/11/17 08:30 Oxygen Delivery Method Room Air Oxygen Flow Rate 0 Intake and Output 02/09/17 02/10/17 02/11/17 23:59 23:59 23:59 Intake Total 1150 1820 1555 Output Total 4275 1325 875 Balance -3125 495 680 General: Alert, Oriented x3, Cooperative, No Acute Distress HEENT: Atraumatic, PERRLA, EOMI, Mucous membr. moist/pink Lungs: Clear to Auscultation Bilaterally, Normal Air Movement Cardiovascular: Regular Rate and Rhythm, Normal S1, Normal S2 Abdomen: Soft, Mild Distention, No Rigid, No Tenderness Extremities: Edema, No Cyanosis, No Tenderness Neurological: Normal Speech Psych/Mental Status: Normal Mood Laboratory 02/10/17 05:13 02/10/17 05:13 02/11/17 02/10/17 02/10/17 07:36 22:20 19:54 POC Capillary Glucose 233 H 288 H 221 H 02/10/17 14:05 POC Capillary Glucose 216 H Current Medications: Current meds reviewed in EMR. - Problems: Assessment/Plan (1) Alcohol withdrawal Qualifiers: Complication of substance-induced condition: with unspecified complication Qualifier Code: (F10.239) Alcohol dependence with withdrawal, unspecified Status: AcuteAssessment/Plan: Presence of HTN, tremor, and tachycardia despite medication (atenolol) suggesting DTs. On Librium, ativan, MVI. Had banana bag. Pt reports desire to quit drinking . Appreciate SW input. Would like to arrange for outpatient treatment on discharge - sedation stopped 02/10 Resolved. Providing PO vitamin supplementation (2) Hypertension Qualifiers: Hypertension type: other secondary hypertension Qualifier Code: (I15.8 ) Other secondary hypertension Status: AcuteAssessment/Plan: Marked HTN associated with alcohol withdrawal. on Atenolol 100 bid, valsartan 320, HCTZ 12.5, amlodipine 10 Continue tx of withdrawal. - BP a bit low this am hold Norvasc (3) Stool color black Status: AcuteAssessment/Plan: Pt reported this. Hemoccult negative. CBC monitoring - Hb stable so far PO Protonix (4) Elevated troponin Status: AcuteAssessment/Plan: Stable, improving troponin: CK -MB not elevated. Suspect NOT ACS nor NSTEMI, but rather demand/strain from marked HTN due to alcohol withdrawal/DTs. Continue ASA, betablocker. CTA did not suggest dissection or other acute cardiovascular complication. Will perform Lexiscan prior to discharge. Lexiscan stress test prior to DC 02/12/2017 (5) Respiratory failure Qualifiers: Chronicity: acute on chronic Respiratory failure complication: hypoxia and hypercapnia Qualifier Code: (J96.21) Acute and chronic respiratory failure with hypoxia Status: AcuteAssessment/Plan: associated with obst. sleep apnea now compounded by aspiration pneumonia versus acute diastolic CHF- Cont. 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 Dietitian requested. - Cont. Amaryl and start metformin today, stopping Lantus VTE Prophylaxis: [facility] measures on admit due to concerns for possible GI bleeding, started Lovenox on 02/09 Disposition: Appreciate SW input. Anticipate discharge in 1-2 days. Additional Comments: Transferred to [facility] on 02/09
[2017-02-11] MEDS ORDERED: CYANOCOBALAMIN 1,000 MCG/ML VIAL IM ONE (11:30)
[2017-02-11] MEDS: ERTAPENEM SODIUM 1 G in NS 0.9% (MINI-BAG PLUS) 50 ML IV SCH (11:34)
[2017-02-11] MEDS: FOLIC ACID 1 MG TABLET PO SCH (11:35)
[2017-02-11] MEDS: PANTOPRAZOLE 40 MG TABLET DR PO SCH (11:35)
[2017-02-11] MEDS: THIAMINE HCL 100 MG TABLET PO SCH (11:37)
[2017-02-11] MEDS: ENOXAPARIN SODIUM 40 MG/0.4 ML SYRINGE SUB-Q SCH (14:58)
[2017-02-11] MEDS ORDERED: MULTIVIT W/ MINERALS 1 TAB TABLET PO SCH (21:00)
[2017-02-11] MEDS ORDERED: MELATONIN 3 MG TABLET PO SCH (21:00)
[2017-02-12] MEDS ORDERED: DIPHENHYDRAMINE HCL 50 MG CAPSULE PO ONE (00:28)
[2017-02-12] MEDS ORDERED: DIPHENHYDRAMINE HCL 25 MG CAPSULE ONE (00:31)
[2017-02-12] MEDS: ACETAMINOPHEN 325 MG TABLET PO PRN (00:36)
[2017-02-12 05:54] LABS: HEMATOCRIT 51.7 % (32.0-52.0); HEMOGLOBIN 16.1 gm/l (14.0-18.0); MEAN CORPUSCULAR HEMOGLOBIN 32.4 pg (27.0-31.0); MEAN CORPUSCULAR HGB CONC 31.1 g/dl (33.0-37.0)
[2017-02-12 06:11] LABS: CALCIUM 9.3 mg/dL (8.6-10.3)
[2017-02-12 08:02] VITALS: BP 140/89
[2017-02-12] MEDS: ALBUTEROL/IPRATROPIUM 2.5/0.5 MG 3 ML/EACH DOSE NEB SCH (08:04)
--- NOTE | 2017-02-12 09:59 | PDOC43 ---
- Subjective Chief Complaint: Alcohol withdrawal, elevated troponin Patient in stress test room. Reported by nursing to be somewhat irritable; pt mentions concern about length of stay (he estimates he has been here two weeks - actually 7 days), and not getting enough information. - Objective Vital Signs Temperature 97.6 F 02/12/17 08:00 Pulse Rate 70 02/12/17 08:05 Respiratory Rate 18 02/12/17 08:05 Blood Pressure 140/89 02/12/17 08:00 O2 Saturation by Pulse Oximetry 91 02/12/17 08:05 Oxygen Delivery Method Room Air Oxygen Flow Rate 0 Vital Signs Last 12 Hours Temp Pulse Resp BP Pulse Ox 02/12/17 08:05 70 18 91 02/12/17 08:00 97.6 F 70 18 140/89 91 02/12/17 02:00 97.8 F 69 20 140/88 94 02/12/17 01:00 18 Intake and Output 02/10/17 02/11/17 02/12/17 23:59 23:59 23:59 Intake Total 1820 2155 1714 Output Total 1325 875 Balance 495 1280 1714 General: Alert, Other (sl irritable) Lungs: Clear to Auscultation Bilaterally Cardiovascular: Regular Rate and Rhythm Abdomen: Soft, Normal Bowel Sounds, Non-Distended Extremities: Edema (mild chronic edema) Skin: Normal Color Psych/Mental Status: Normal Affect (sl irritability) Laboratory 02/12/17 05:30 02/12/17 05:30 02/12/17 02/11/17 02/11/17 05:30 21:19 19:19 MCV 104.0 H MCH 32.4 H MCHC 31.1 L POC Capillary Glucose 292 H 212 H 02/11/17 14:43 MCV MCH MCHC POC Capillary Glucose 223 H Current Medications: Current meds reviewed in EMR. - Problems: Assessment/Plan (1) Alcohol withdrawal Qualifiers: Complication of substance-induced condition: with unspecified complication Qualifier Code: (F10.239) Alcohol dependence with withdrawal, unspecified Status: AcuteAssessment/Plan: Presence of HTN, tremor, and tachycardia despite medication (atenolol) suggesting DTs, now improving. Pt reports desire to quit drinking . Appreciate SW input. Now appears resolved. Providing PO vitamin supplementation (2) Elevated troponin Status: AcuteAssessment/Plan: Resolved troponin, on elevation,CK -MB not elevated. Suspect NOT ACS nor NSTEMI, but rather demand/strain from marked HTN due to alcohol withdrawal/DTs. CTA did not suggest dissection or other acute cardiovascular complication. Lexiscan done, awaiting results. (3) Hypertension Qualifiers: Hypertension type: other secondary hypertension Qualifier Code: (I15.8 ) Other secondary hypertension Status: AcuteAssessment/Plan: Marked HTN associated with alcohol withdrawal. on Atenolol 100 bid, valsartan 320, HCTZ 12.5, amlodipine 10 Continue tx of withdrawal. - BP a bit low this am hold Norvasc (4) Stool color black Status: AcuteAssessment/Plan: Pt reported this. Hemoccult negative. CBC monitoring - Hb stable, with modest decline due to hydration. PO Protonix (5) Diabetes mellitus type II, uncontrolled Qualifiers: Diabetes mellitus complication status: without complication Diabetes mellitus acetylene burner insulin use: without shelter use Qualifier Code: ( E11.65) Type 2 diabetes mellitus with hyperglycemia Status: Suspected Assessment/Plan: Elevated glucose, A1c of 10.5 would suggest uncontrolled DMII On Lantus, Amaryl, CBGs, SS insulin. Dietitian requested. - increase Amaryl and would consider stopping metformin due to alcohol use. VTE Prophylaxis: [facility] measures on admit due to concerns for possible GI bleeding, started Lovenox on 02/09 Disposition: Appreciate SW input. Anticipate discharge today, unless Myoview suggests need for transfer/cardiology consult.
[2017-02-12] MEDS: ATENOLOL 50 MG TABLET PO SCH (10:08)
[2017-02-12] MEDS: VALSARTAN 80 MG TABLET PO SCH (10:08)
[2017-02-12] MEDS: THIAMINE HCL 100 MG TABLET PO SCH (10:08)
[2017-02-12] MEDS: GLIMEPIRIDE 4 MG TABLET PO SCH (10:08)
[2017-02-12] MEDS: DOCUSATE SODIUM 100 MG CAPSULE PO SCH (10:09)
[2017-02-12] MEDS: PANTOPRAZOLE 40 MG TABLET DR PO SCH (10:09)
[2017-02-12] MEDS: FOLIC ACID 1 MG TABLET PO SCH (10:09)
[2017-02-12] MEDS: HYDROCHLOROTHIAZIDE 12.5 MG CAP PO SCH (10:09)
[2017-02-12] MEDS: METFORMIN HCL 850 MG TABLET PO SCH (10:09)
[2017-02-12] MEDS: AMLODIPINE BESYLATE 5 MG TABLET PO SCH (10:10)
[2017-02-12] MEDS ORDERED: REGADENOSON 0.1 MG DOSE IV ONE (10:32)
--- NOTE | 2017-02-12 11:02 | NUC MED ---
CARDIAC STRESS MULTIPLE STUDY COMPARISON: None HISTORY: 51-year-old male, diabetic, 340 pounds, with chest pain and borderline elevated troponin TECHNIQUE: Gated SPECT performed after IV injection sestamibi at rest and again after pharmacologic stress. End diastolic and end systolic measurements of left ventricular volume were used to calculate the ejection fracture. Computer generated wall motion reproduction was performed. DOSE: Sestamibi (rest): 36.1 mCi on 02/08/2017 Sestamibi (stress): 36.4 mCi on 02/12/2017 Lexiscan: 0.4 mg ECG findings: See separate report by Dr. Corona. FINDINGS: Left ventricle perfusion at rest: Dilated left ventricle with relatively decreased activity in the inferior wall. Left ventricle perfusion at stress: Dilated left ventricle with relatively decreased activity in the inferior wall, similar to the rest images Ejection fraction: 51% Wall motion: Normal IMPRESSION: No reversible defect. Decreased activity in the inferior wall, either from a dilated cardiomyopathy or old infarct in the right coronary artery distribution. Borderline low ejection fraction of 51%. The results discussed with Jose Luis Corona III, MD 02/12/2017 at 10:58
[2017-02-12] MEDS: ERTAPENEM SODIUM 1 G in NS 0.9% (MINI-BAG PLUS) 50 ML IV SCH (11:12)
--- NOTE | 2017-02-12 17:56 | DS ---
ROMERO BERMAN [id number] DATE OF : 1965 PRIMARY CARE PHYSICIAN: Dr. Steve Shepard. He has an appointment on 02/20/2017. DATE OF ADMISSION: 02/05/2017 DATE OF DISCHARGE: 02/12/2017 DISCHARGE DIAGNOSES: 1. Alcohol withdrawal, with delirium tremens. 2. Diabetes mellitus Type-2, newly diagnosed, with an A1C of 10.5. 3. Cardiomyopathy, suspect related to alcohol. 4. Hypertension, partly worsened due to alcohol withdrawal. 5. Hospital-acquired pneumonia versus fluid overload, favor fluid overload. PROCEDURES DONE: 1. A CT angiogram of the chest performed on 02/05/2017 showed no pulmonary embolus, mild stranding of the head of the pancreas, splenomegaly, bilateral adrenal hypertrophy and fatty infiltration of the liver, but no pulmonary embolus. 2. The patient had an echocardiogram performed on 02/07/2017, showing a left ventricular ejection fraction mildly and globally reduced, estimated at 45-50%. Severe left atrial enlargement by volume criteria. This will be diagnosed as severe left atrial enlargement. 3. Grade-2 diastolic dysfunction, consistent with impaired relaxation and mild to moderate increase in filling pressures. Mild mitral valve regurgitation. Actually has severe right atrial enlargement as well. 4. He had a Lexiscan Myoview completed on 02/12/2017, showing no reversible defect. Decreased activity in the inferior wall, considered dilated cardiomyopathy or old infarct in the right coronary artery distribution. Borderline low ejection fraction of 51%. REASON FOR ADMISSION: The patient is a 51-year-old male with a history of heavy daily alcohol use who quit drinking three days prior to admission. He had had symptoms of shortness of breath for the last two weeks, which has worsened in the last 72 hours. In the last 48 hours he has had dull left-sided chest pain on and off, which felt like a pressure sensation in the left side of the chest. He had been noting problems with palpitations and his symptoms began after he quit drinking, and he has had a number of stressors with currently from and family and living in a hotel. He had also had a dark stool which caused some concern, which caused him to quit drinking cold turkey when he did. He normally drinks about 18 beers a day, but has had up to 36 beers per day. He denies use of iron supplements or Pepto Bismol. In the ER, his labs had shown a white count of 4.2, hemoglobin 17.5, hematocrit 53.8, MCV of 100.6 and platelets 119. D-dimer is 0.54, which prompted the CT angiogram of the chest. His sodium was 134, potassium 3.9, chloride 94, BUN of 14, creatinine 1.1 and glucose 155. Calcium 8.9, bilirubin 1.3, AST of 63, ALT of 76, alkaline phosphatase 66, troponin 0.14 and CK-MB of 5.8. Lipase 26. TSH is 0.7. With tachycardia and borderline elevated troponin, he was referred to the Hospitalist Service. HOSPITAL COURSE: His symptoms were felt to be consistent with acute alcohol withdrawal. He was referred to Med-Surg, placed on telemetry and given scheduled Librium, as well as PRN Ativan. He also was given atenolol to address his blood pressure and tachycardia. His blood pressure had been 149/109 on admission and a heart rate of 120. He received Protonix due to the history of dark stools and concern for gastritis. He had a banana bag and was referred for social work as well. The patient had worsened alcohol withdrawal and delirium tremens, and had been placed in the ICU. His troponins generally declined, being initially 0.14 on admission, remained at 0.14, then 0.11, and was 0.07 by 02/07/2017 and 0.05 by 02/08/2017 and 02/09/2017. His CK-MB remained normal the entire time. He had modest elevation of liver enzymes develop during the course of hospitalization, with an AST up to 127 on 02/08/2017 and an ALT of 132. His bilirubin reached a peak of 1.5 on 02/08/2017. The patient had treatment of elevated glucose with insulin and sliding scale, and later had initiation of metformin and glimepiride. He had a hemoglobin A1C of 10.5. During the hospital course he developed some dyspnea and increasing oxygen needs, and a chest x-ray performed on 02/09/2017 suggested bilateral pulmonary infiltrates compared to 02/07/2017. Differential diagnoses including pneumonia and noncardiogenic pulmonary edema. The patient did receive Lasix and fluid status was monitored, and by 02/12/2017 he was maintaining saturations in the low 90's on room air. The patient had a Lexiscan Myoview ordered. Because of his weight being 158 kilograms, it had to be done over two days. The first day was performed on 02/08/2017, but then the second part had to be completed on 02/12/2017. He had restlessness and some agitation, which precluded doing this or other significant tests. An echocardiogram was done on the as well. The patient initially on admission had been fairly calm when treated with Librium, later developed restlessness and some agitation, but by the latter half of the hospitalization was felt to be just somewhat irritable. After reviewing his stress test with him, the patient left before he was able to get his discharge medications and he evidently had removed his IV himself and left the building. DISCHARGE MEDICATIONS: His discharge medications were anticipated to be: 1. Amlodipine/valsartan/hydrochlorothiazide 5/160/12.5 one by mouth twice a day. 2. Atenolol 100 mg by mouth twice a day. 3. Cefuroxime 500 mg by mouth twice a day times seven more days. 4. Amaryl 4 mg by mouth daily. 5. Multivitamin one by mouth at bedtime. 6. He was also to have a prescription for a glucometer, control solution and test strips, but did not receive any of his prescriptions for this. He had seen social work and had been noncommittal toward quitting alcohol. The patient was given resources for this. VITAL SIGNS AT THE TIME OF DISCHARGE: Temperature 97.6, pulse 60, respirations 18 and 91% saturation on room air. LABS: Blood sugar was 167. His creatinine was 1.0 on 02/10/2017, sodium 136, potassium 3.6, BUN of 19, creatinine 1.0 and calcium 8.9. His white blood cell count was 2.8, hemoglobin 16.1 and platelets 179. DISCHARGE FOLLOW-UP: Follow-up is requested with Dr. Steve Shepard on 02/20/2017 at 1:50 P.M. This was to follow-up on alcohol treatment, activity tolerance, follow-up on diabetes and hypertension, as well as to verify that there had been no significant worsening to suggest significant lung infection. cc: Dr. Steve Shepard
== END 2017-02-12 13:10 | disposition home or self-care (01) | DRG 896 ==
LOC: ED 17:37 → MS 22:00 → OBSVTOIN 23:08 → EEVIPCON 23:08 → MS 02-06 14:50 → ICU 02-09 11:20 → MS 02-11 13:53
PROVIDERS: ADMIT Family Medicine; ATTEND Family Medicine
DX: F10.231 Alcohol dependence with withdrawal delirium (principal); J18.9 Pneumonia, unspecified organism; J96.22 Acute and chronic respiratory failure with hypercapnia; J96.21 Acute and chronic respiratory failure with hypoxia; I42.9 Cardiomyopathy, unspecified; E11.9 Type 2 diabetes mellitus without complications; I10 Essential (primary) hypertension; Y95 Nosocomial condition; J01.00 Acute maxillary sinusitis, unspecified; G47.33 Obstructive sleep apnea (adult) (pediatric)